=== PATIENT | female | born 1970 | race Caucasian/White ===

== ENCOUNTER → 2021-03-06 13:09 | Outpatient (BNVA) | payer MEDICAID, SELFPAY | PROVIDERS: PCP Family Medicine; Visit Provider Psychiatry & Neurology Psychiatry | DX: F31.9 Bipolar disorder, unspecified (principal); F41.9 Anxiety disorder, unspecified; F32.9 Major depressive disorder, single episode, unspecified; F32.3 Major depressive disorder, single episode, severe with psychotic features; F19.10 Other psychoactive substance abuse, uncomplicated; F10.10 Alcohol abuse, uncomplicated | CPT/HCPCS: 90792 ==

== ENCOUNTER → 2021-05-26 09:51 | Outpatient (BNVA) | payer MEDICAID, SELFPAY | PROVIDERS: PCP Family Medicine; Visit Provider Psychiatry & Neurology Psychiatry | DX: Z79.899 Other long term (current) drug therapy (principal); Z03.89 Encounter for observation for other suspected diseases and conditions ruled out | CPT/HCPCS: 80053; 80061; 83036; 84443 ==